=== PATIENT | female | born 1975 | race Hispanic/Latino ===

== ENCOUNTER 2022-04-28 22:32 | Emergency (ER) | payer MEDICAID, OTHER ==
[~2022-04-28] VITALS: Ht 154.9 cm; Wt 77.6 kg
== END 2022-04-28 23:07 | disposition home or self-care (01) ==
LOC: EDH 22:32
DX: Z13.39 Encounter for screening examination for other mental health and behavioral disorders (principal); Z53.21 Procedure and treatment not carried out due to patient leaving prior to being seen by health care provider